=== PATIENT | female | born 2000 ===

== ENCOUNTER 2023-09-30 13:44 | Outpatient (RCR) | payer MEDICAID, SELFPAY | END 2023-10-03 16:38 | disposition home or self-care (01) | LOC: OT 13:44 | PROVIDERS: PCP Physician Assistant Medical; Visit Provider Physician Assistant Medical | DX: R62.50 Unspecified lack of expected normal physiological development in childhood (principal); Q90.9 Down syndrome, unspecified; Z86.61 Personal history of infections of the central nervous system | CPT/HCPCS: 97166 ==

== ENCOUNTER 2024-02-28 08:06 | Outpatient (RCR) | payer MEDICAID, SELFPAY | END 2024-03-02 13:26 | disposition home or self-care (01) | LOC: OT 08:06 | PROVIDERS: PCP Physician Assistant Medical; Visit Provider Physician Assistant Medical | DX: R62.50 Unspecified lack of expected normal physiological development in childhood (principal); Q90.9 Down syndrome, unspecified; Z86.61 Personal history of infections of the central nervous system | CPT/HCPCS: 97167 ==